=== PATIENT | female | born 1985 | race Caucasian/White ===

== ENCOUNTER 2016-09-03 19:48 | Emergency (ER) | payer SELFPAY ==
[2016-09-03 20:31] VITALS: BP 102/64
[2016-09-03] MEDS ORDERED: predniSONE TAB* 20 MG PO ONE (21:17)
--- NOTE | 2016-09-03 21:22 | UC ---
Throat Pain/Nasal Vladimir HPI - HPI Summary HPI Summary: Facial pain, pressure, nasal congestion, and ST starting 3-4 days ago. Denies cold symptoms prior, no hx of allergies, no fever, no trouble breathing, no past ENT surgery. Feels like bilat upper dental pain, R>L. - History of Current Complaint Chief Complaint: UCDentalProblem Stated Complaint: DENTAL PAIN Time Seen by Provider: 09/03/16 20:56 Hx Obtained From: Patient Hx Last Menstrual Period: IMPLANON ?: No Onset/Duration: Gradual Onset, Lasting Days Severity: Moderate Cough: None Associated Signs & Symptoms: Positive: Sinus Discomfort, Nasal Discharge - Allergies/Home Medications Allergies/Adverse Reactions: Allergies Allergy/AdvReac Type Severity Reaction Status Date / Time Penicillins Allergy Severe Anaphylatic Verified 09/03/16 20:31 Shock Home Medications: Home Medications Orajel* PRN 09/03/16 [History] PMH/Surg Hx/FS Hx/Imm Hx Previously Healthy: Yes - Surgical History Surgical History: Yes Surgery Procedure, Year, and Place: cholecystectomy - Family History Family History: Strong FHx of CVA. FHx of brain aneurysm. FHx of abdominal aneurysm - Social History Occupation: Employed Full-time Lives: With Family Alcohol Use: None Substance Use Type: None Smoking Status (MU): Current Every Day Smoker Type: Cigarettes Amount Used/How Often: 5 cigs daily Length of Time of Smoking/Using Tobacco: 10 + years Have You Smoked in the Last Year: Yes When Did the Patient Quit Smoking/Using Tobacco: 3 weeks ago Household Exposure Type: Cigarettes - Immunization History Most Recent Influenza Vaccination: 2014 Most Recent Tetanus Shot: UTD Review of Systems Constitutional: Negative Skin: Negative Eyes: Negative ENT: Nasal Discharge, Sinus Congestion, Sinus Pain/Tenderness Respiratory: Negative Cardiovascular: Negative Gastrointestinal: Negative Genitourinary: Negative Motor: Negative Neurovascular: Negative Musculoskeletal: Negative Neurological: Negative Psychological: Negative All Other Systems Reviewed And Are Negative: Yes Physical Exam Triage Information Reviewed: Yes Appearance: Well-Appearing, No Pain Distress, Well-Nourished Vital Signs: Initial Vital Signs Temp 97.8 F 09/03/16 20:28 Pulse 65 09/03/16 20:28 Resp 16 09/03/16 20:28 BP 102/64 09/03/16 20:28 Pulse Ox 100 09/03/16 20:28 Vital Signs Reviewed: Yes Eye Exam: Normal Eyes: Positive: Conjunctiva Clear ENT: Positive: Pharynx normal, Nasal congestion, TMs normal, Other: - bilat maxillary sinus tenderness. Negative: Tonsillar swelling Dental Exam: Normal Dental: Negative: Percussion Tenderness @, Gross Decay/Caries @ Neck exam: Normal Respiratory Exam: Normal Respiratory: Positive: Chest non-tender, Lungs clear, Normal breath sounds, No respiratory distress, No accessory muscle use Cardiovascular Exam: Normal Cardiovascular: Positive: RRR, No Murmur Musculoskeletal Exam: Normal Neurological Exam: Normal Neurological: Positive: Alert Psychological Exam: Normal Skin Exam: Normal Throat Pain/Nasal Course/Dx - Differential Dx/Diagnosis Provider Diagnoses: acute maxillary sinusitis Discharge - Discharge Plan Condition: Stable Disposition: HOME Prescriptions: Mometasone NASAL (NF) [Nasonex (NF)] 2 spray BOTH NARES DAILY #1 nasal.spr predniSONE TAB* [Deltasone TAB*] 50 mg PO DAILY #4 tab Patient Education Materials: Rhinosinusitis (ED) Referrals: Farrah Rosario MD [Primary Care Provider] - If Needed Additional Instructions: As we discussed, the rapidity of your symptoms and lack of preceding congestion make bacterial infection unlikely. However, if you do not have marked improvement within 48 hours of this steroid, please call and get me a message and I will send in a prescription for an antibiotic.
== END 2016-09-03 21:25 | disposition home or self-care (01) ==
LOC: UCEAST 19:48
DX: J01.00 Acute maxillary sinusitis, unspecified (principal); F17.210 Nicotine dependence, cigarettes, uncomplicated
CPT/HCPCS: 99212; G0463; J7512